=== PATIENT | female | born 1930 | race Caucasian/White ===

== ENCOUNTER 2017-07-22 09:11 | Inpatient (IN) ==
--- NOTE | 2017-07-22 10:08 | PROVIDER DOCUMENTATION ---
HPI-Head Injury - General Chief Complaint: Fall Stated Complaint: FALL Time Seen by Provider: 07/22/17 10:05 Source: patient Allergies/Adverse Reactions: Patient Allergies Allergy/AdvReac Type Severity Reaction Status Date / Time codeine AdvReac NAUSEA Verified 07/22/17 10:30 Home Medications: Home Medication List Medication Instructions Recorded Confirmed Last Taken Type Amiodarone HCl 200 mg PO QAM 07/22/17 07/22/17 07/22/17 07:00 History Levothyroxine Sodium 50 mcg PO QAM 07/22/17 07/22/17 07/22/17 07:00 History - History of Present Illness-Head Injury Nature of Presenting Problem: 86 year old WF presents after a fall. pt reports she fell this morning and does not know why she is falling. pt c/o right facial pain, right eyebrow laceration , left hip pain. pt denies chest pain, shortness of breath, difficulty breathing , syncope, dizziness. pt appears in no distress, awake, alert. Head Injury Location: reports: frontal (right facial) Other injuries associated with incident:: reports: head Quality of Pain: reports: aching, dull Severity: reports: mild Onset/Duration: reports: just prior to arrival Timing: reports: still present, constant Method of Injury: reports: fell Any recent trauma/injury?: reports: major, to head Loss of Consciousness: no loss of consciousness Locality of Occurance: Home Similar Symptoms Previously?: Yes Recently seen or treated by another doctor?: Yes (see EMR for recent frequent falls.) Review of Systems - Adult - REVIEW OF SYSTEMS - ADULT Constitutional: reports: no symptoms reported. denies: chills, fever, fatique Eyes: reports: see HPI, eye pain. denies: discharge, decreased vision, blurred vision, double vision Ears, Nose, Mouth & Throat: reports: see HPI, epistaxis, sinus problem (right maxillary pain). denies: throat pain, throat swelling Cardiovascular: reports: no symptoms reported. denies: chest pain, palpitations , syncope Respiratory: reports: no symptoms reported. denies: chronic cough, cough, shortness of breath, wheezing Gastrointestinal: reports: no symptoms reported. denies: abdominal pain, diarrhea, nausea, vomiting Genitourinary: reports: no symptoms reported. denies: dysuria, hematuria, urgency Musculoskeletal: reports: see HPI, joint pain (left hip) Integumentary: reports: see HPI, other (lacerations). denies: hives, itching, skin sores/ulcer Neurological: reports: no symptoms reported. denies: ataxia, dizziness/vertigo , headache/migraines, loss of balance, numbness, paresthesia, seizure, slurred speech, syncope, tremors Psychiatric: reports: no symptoms reported Endocrine: reports: no symptoms reported Hematologic/Lymphatic: reports: no symptoms reported Allergic/Immunologic: reports: no symptoms reported All Other Systems: Reviewed and Negative Past History - Adult - PAST MEDICAL HISTORY-ADULT Review of Records: reports: Old Records Reviewed, Nursing Assessment Review, Medications Reviewed, Social history reviewed & non-contributory. 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 denies: murmur, pacemaker Respiratory: reports: denies history Gastrointestinal: reports: GERD Obstetrical/Gynecological: reports: denies history Genitourinary: reports: denies history Musculoskeletal: reports: arthritis, other fractures, other (multiple frequent falls) Neurological: reports: CVA, other (chronic subdural hematomas). denies: stroke deficits, Seizures/Epilepsy, TIA Endocrine/Immune: reports: denies history Other Conditions: reports: denies history - PRIOR SURGERIES/PROCEDURES Surgical/Procedure History: reports: appendectomy, cholecystectomy, hysterectomy , orthopedic (extremity) - IMMUNIZATION STATUS Childhood Immunizations: NUTD Flu Vaccine: NUTD - FAMILY HISTORY Family History: diabetes Physical Exam- Neurological - Physical Exam-Neuro Initial Vital Signs Reviewed: Yes General Appearance: appears well, alert, no apparent distress Eye Exam: bilateral eye: normal inspection, PERRL, EOMI HENMT: moist mucous membranes, TMs normal, pharynx normal, maxillary tenderness (right), other. negative: normal ENT inspection, frontal tenderness Head Injury: active bleeding, contusions (right orbital laceration), ecchymosis , lacerations, raccoon eyes (right), swelling, tenderness Face: 1 - ecchymosis; right orbit tender to palpation; 1.5 cm laceration to the right eyebrow. Neck: non-tender, full range of motion, supple, normal inspection. negative: C- spine tenderness, limited range of motion, tender lateral, tender midline Respiratory: chest non-tender, lungs clear, normal breath sounds, no pleuratic chest pain, no respiratory distress, no accessory muscle use Cardiovascular: normal peripheral pulses, regular rate, rhythm Abdominal Exam: normal bowel sounds, non tender, soft Peripheral Pulses: radial (R): 2+, radial (L): 2+, dorsalis-pedis (R): 2+, dorsalis-pedis (L): 2+ Extremity: normal inspection, no pedal edema, no calf tenderness, normal capillary refill, pelvis stable, tenderness (left hip tender with palpation.). 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 negative: facial asymmetry, facial droop, facial paresthesias, facial weakness, tongue deviation to R, tongue deviation to L Coordination/Gait: negative: normal gait (unable to ambulate secondary to pain/ tenderness) Motor/Sensory: no motor deficit, no sensory deficit. negative: sensory deficit , weak motor strength RUE, weak motor strength LUE, weak motor strength RLE, weak motor strength LLE Neurologic: special trackwork blacksmith II-XII nml as tested, grossly normal, no motor/sensory deficits . negative: facial droop, focal weakness, motor weakness Integumentary: normal color, normal turgor, laceration(s) (right eyebrow) Psych/Mental Status: normal mood/affect, normal thought content, normal thought process, oriented x 3 - Glascow Coma Scale Best Eye Response: (4) open spontaneously Best Verbal Response: (5) oriented Best Motor Response: (6) obeys commands Total Glascow Score: 15 Progress - PLAN OF CARE/RESULTS Progress/Plan/Lab Results: Vital Signs - 8 hr 07/22/17 09:15 07/22/17 11:41 07/22/17 11:51 Temperature 97.5 F L Pulse Rate 74 64 66 Respiratory Rate 16 15 19 Blood Pressure 112/65 125/85 118/58 O2 Sat by Pulse Oximetry 95 97 07/22/17 14:00 07/22/17 14:22 Temperature Pulse Rate 72 74 Respiratory Rate 15 16 Blood Pressure 133/81 115/68 O2 Sat by Pulse Oximetry 95 95 Laboratory Results - last 24 hr 07/22/17 07/22/17 07/22/17 10:36 10:36 10:36 WBC 22.41 H RBC 3.70 L Hgb 11.8 L Hct 35.1 L MCV 94.9 MCH 31.9 H MCHC 33.6 RDW Std Deviation 14.6 H Plt Count 269 MPV 10.3 Immature Gran % (Auto) 0.8 H Neut % (Auto) 88.2 H Lymph % (Auto) 5.7 L Br[place] % (Auto) 4.8 Eos % (Auto) 0.4 Baso % (Auto) 0.1 Immature Gran # (Auto) 0.17 H Neut # (Auto) 19.76 H Lymph # (Auto) 1.27 Br[place]ley # (Auto) 1.08 H Eos # (Auto) 0.10 Baso # (Auto) 0.03 PT INR PTT (Actin FS) Sodium 137 Potassium 4.5 Chloride 100 Carbon Dioxide 26 Anion Gap 11 BUN 20 Creatinine 1.4 H Estimated GFR/1.73 m2 36 BUN/Creatinine Ratio 14 Glucose 171 H Calculated Osmolality 280 Calcium 9.8 Total Bilirubin 0.41 AST 18 ALT 9 L Alkaline Phosphatase 59 Creatine Kinase 38 Troponin T Total Protein 7.0 Albumin 4.1 Globulin 2.9 Albumin/Globulin Ratio 1.4 Plasma Lactate Urine Source Urine Color Urine Turbidity Urine pH Ur Specific [place] Urine Protein Ur Glucose (Stick) Ur Ketones (Stick) Urine Blood Urine Nitrite Urine Bilirubin Urobilinogen Dipstick Urine Leukocytes Urine WBC (Auto) Urine RBC (Auto) U Epithel Cells (Auto) Urine Bacteria (Auto) Urine Opiates Screen Ur Oxycodone Screen Ur Methadone, Qual Ur Barbiturates Screen Ur Phencyclidine Scrn Ur Amphetamines Screen U Benzodiazepines Scrn Urine Cocaine Screen U Cannabinoids Screen Plasma/Serum Ethyl Alc Blood Type Antibody Screen 07/22/17 07/22/17 07/22/17 10:36 10:36 10:36 WBC RBC Hgb Hct MCV MCH MCHC RDW Std Deviation Plt Count MPV Immature Gran % (Auto) Neut % (Auto) Lymph % (Auto) [place] % (Auto) Eos % (Auto) Baso % (Auto) Immature Gran # (Auto) Neut # (Auto) Lymph # (Auto) [place] # (Auto) Eos # (Auto) Baso # (Auto) PT 10.5 INR 1.00 PTT (Actin FS) 21.9 L Sodium Potassium Chloride Carbon Dioxide Anion Gap BUN Creatinine Estimated GFR/1.73 m2 BUN/Creatinine Ratio Glucose Calculated Osmolality Calcium Total Bilirubin AST ALT Alkaline Phosphatase Creatine Kinase Troponin T < 0.010 Total Protein Albumin Globulin Albumin/Globulin Ratio Plasma Lactate 2.4 H Urine Source Urine Color Urine Turbidity Urine pH Ur Specific [place] Urine Protein Ur Glucose (Stick) Ur Ketones (Stick) Urine Blood Urine Nitrite Urine Bilirubin Urobilinogen Dipstick Urine Leukocytes Urine WBC (Auto) Urine RBC (Auto) U Epithel Cells (Auto) Urine Bacteria (Auto) Urine Opiates Screen Ur Oxycodone Screen Ur Methadone, Qual Ur Barbiturates Screen Ur Phencyclidine Scrn Ur Amphetamines Screen U Benzodiazepines Scrn Urine Cocaine Screen U Cannabinoids Screen Plasma/Serum Ethyl Alc Blood Type Antibody Screen 07/22/17 07/22/17 07/22/17 10:36 11:57 11:57 WBC RBC Hgb Hct MCV MCH MCHC RDW Std Deviation Plt Count MPV Immature Gran % (Auto) Neut % (Auto) Lymph % (Auto) [place] % (Auto) Eos % (Auto) Baso % (Auto) Immature Gran # (Auto) Neut # (Auto) Lymph # (Auto) [place] # (Auto) Eos # (Auto) Baso # (Auto) PT INR PTT (Actin FS) Sodium Potassium Chloride Carbon Dioxide Anion Gap BUN Creatinine Estimated GFR/1.73 m2 BUN/Creatinine Ratio Glucose Calculated Osmolality Calcium Total Bilirubin AST ALT Alkaline Phosphatase Creatine Kinase Troponin T Total Protein Albumin Globulin Albumin/Globulin Ratio Plasma Lactate Urine Source CATH Urine Color YELLOW Urine Turbidity CLEAR Urine pH 6.0 Ur Specific [place] 1.018 Urine Protein 30 A Ur Glucose (Stick) NEGATIVE Ur Ketones (Stick) NEGATIVE Urine Blood NEGATIVE Urine Nitrite NEGATIVE Urine Bilirubin NEGATIVE Urobilinogen Dipstick NORMAL Urine Leukocytes NEGATIVE Urine WBC (Auto) <10 Urine RBC (Auto) <10 U Epithel Cells (Auto) <10 Urine Bacteria (Auto) NEGATIVE Urine Opiates Screen PRESUMPTIVE POSITIVE A Ur Oxycodone Screen NONE DETECTED Ur Methadone, Qual NONE DETECTED Ur Barbiturates Screen NONE DETECTED Ur Phencyclidine Scrn NONE DETECTED Ur Amphetamines Screen NONE DETECTED U Benzodiazepines Scrn PRESUMPTIVE POSITIVE A Urine Cocaine Screen NONE DETECTED U Cannabinoids Screen NONE DETECTED Plasma/Serum Ethyl Alc Blood Type A POSITIVE Antibody Screen NEGATIVE Orders Category Date Time Status Cardiac Monitoring DIRECTED Care 07/22/17 10:07 Active Oxygen Therapy- ED Nursing DIRECTED Care 07/22/17 10:07 Hold Saline Loc NOW Care 07/22/17 10:07 Active CHEST-PORTABLE [RAD] Stat Exams 07/22/17 10:[address] FACIAL BONES W/O CONTRAST [CT] Stat Exams 07/22/17 10:[address] HEAD/C-SPINE W/O CONTRAST [CT] Stat Exams 07/22/17 10:05 Completed XRAY PELVIS W/HIP 2-3VW LT [RAD] Stat Exams 07/22/17 11:58 Completed ALCOHOL BLOOD Stat Lab 07/22/17 10:36 Completed CBC WITH ELECTRONIC DIFF [HEME] Stat Lab 07/22/17 10:36 Completed CK PROFILE [SP CHEM] Stat Lab 07/22/17 10:36 Completed COMPREHENSIVE METABOLIC PANEL [CHEM] Stat Lab 07/22/17 10:36 Completed LACTATE, PLASMA [CHEM] Stat Lab 07/22/17 10:36 Completed PROTIME WITH INR [COAG] Stat Lab 07/22/17 10:36 Completed PTT [COAG] Stat Lab 07/22/17 10:36 Completed TROPONIN T Stat Lab 07/22/17 10:36 Completed TYPE & SCREEN [BBK] Stat Lab 07/22/17 10:36 Completed URINALYSIS W/POSS RFLX CULT-1 [URINALYSIS] Stat Lab 07/22/17 11:57 Completed URINE DRUG SCREEN Stat Lab 07/22/17 11:57 Completed 0.9% Sodium Chloride Inj [Ns] 1,000 ml Med 07/22/17 11:46 Discontinued IV 999 mls/hr Doxycycline 100 mg Med 07/22/17 15:00 Active 0.9% Sodium Chloride Inj [Ns] 250 ml IV ONCE Doxycycline 100 mg Med 07/22/17 14:15 Ordered 0.9% Sodium Chloride Inj [Ns] 250 ml IV Q12H Lidocaine 1% [Xylocaine 1%] Med 07/22/17 14:45 Discontinued 20 ml INJ NOW ONE Oxymetazoline Nasal [place] [Afrin Nasal [place]] Med 07/22/17 14:15 Active See Dose Instructions DAYA Q12H Pharmacy Order [Vancomycin IV Per Pharmacy] Med 07/22/17 14:15 Active 1 each MISC DIRECTED Piperacillin/Tazobactam [Zosyn] 3.375 gm Med 07/22/17 12:12 Discontinued 0.9% Sodium Chloride Inj [Ns] 50 ml IV NOW Piperacillin/Tazobactam [Zosyn] 3.375 gm Med 07/22/17 19:00 Active 0.9% Sodium Chloride Inj [Ns] 50 ml IV Q6H Vancomycin 1 gm/Ns Med 07/22/17 12:13 Discontinued 1 gm in 250 ml IV NOW Pulse Oximetry Stat Oth 07/22/17 10:07 Completed EKG [EKG] Stat Ther 07/22/17 10:07 Draft Transfer/Admit Order [TRANSFER] Routine Transfer 07/22/17 13:58 Ordered Reviewed labs, radiology, H&P with Dr. Osuna, agrees with admission, will Result Diagrams: 07/22/17 10:36 07/22/17 10:36 - CONSULTS/PCP/HOSPITALIST Notification #1 *Consult/PCP/Hospitalist*: Nurse for Dr. Magallanes Time Discussed: 11:56 Reason/Comments: passed radiology findings, she is going to page him for consult. #2 Consult: Dr. Maagllanes Time Discussed: 12:06 Consult Disposition: F/U in office, other (reviewed radiology results with Dr. Magallanes, he recommends closing laceration over the right eyebrow; direct pt to not blow nose, sneeze with mouth open, soft diet, afrin. He will see patient in his office on July 25, 2017.) #3 Consult: Nigel Time Discussed: 12:10 Reason/Comments: she will call back Consult Disposition: other ([id number];Gay called back, accepted admission, Dr. Joshua attending.) Procedures - LACERATION/WOUND REPAIR/FB Right Eye Wound Location: Other: right eyebrow Wound Length: 1.5cm Wound's Depth, Shape: into muscle, stellate, contused tissue Wound Explored/Foreign Body: clean, no foreign body found Irrigated with Saline?: No Prepped with: Hibiclens, Kit Utilized, Sterile Drapes Applied Anesthetic: 1%, Lidocaine/Xylocaine Volume of Anesthetic (ml's): 4 Wound Debrided: minimal Wound Repaired with: Sutures Suture Size/Type: 6.0, Non-Absorbable, Nylon Number of Sutures: 4 Layer Closure?: No Sterile Dressing Applied?: Yes Splint Applied?: No Sling Applied?: No Post Procedure Neurovascular Exam: N/A Departure - Departure Date of Disposition Decision: 07/22/17 Time of Disposition Decision: 11:48 DIAGNOSIS: Maxillary fracture Qualifiers: Encounter type: initial encounter Fracture type: closed Laterality: right Qualified Code(s): S02.40CA - Maxillary fracture, right side, initial encounter for closed fracture Fall Qualifiers: Encounter type: initial encounter Qualified Code(s): W19.XXXA - Unspecified fall, initial encounter Thoracic compression fracture Qualifiers: Encounter type: initial encounter Fracture type: closed Qualified Code(s): S22.000A - Wedge compression fracture of unspecified thoracic vertebra, initial encounter for closed fracture Disposition: ADMITTED INPATIENT Certified Medical Emergency: Emergent Condition: Stable Additional Freetext Instructions: Per Dr. Delmar Magallanes on admit: F/U on WednesdayJul.25 in his office Direct pt not not blow nose sneeze with mouth open not closed soft diet use afrin Doxycycline Referrals and Follow-Ups: Will Magallanes MD [ACTIVE STAFF PHYSICIAN] - 07/25/17 Lucas Geller [Primary Care Provider] - - Critical Care Note This patient required my direct & personal management of CC.: No Attestation - Physician/ FORD Attestation Patient care was provided by Advanced Practice Provider:: Yes Advanced Practice Provider:: Yolanda Norton Advanced Practice Provider documentation review:: The Mid-level provider documentation, treatment plan and medical decision making was reviewed by the physician who agrees with all treatment and medical decision making by the P. The physician spent face to face time with patient:: Yes (@[id number]) Advanced Practice Provider documentation review:: Supervising physician onsite and consulted in the evaluation and care of this patient. The physician did have a face to face encounter with the patient.
[2017-07-22 10:49] LABS: BASO% 0.1 % (0.0-0.8); EOS% 0.4 % (0.0-10.0); HEMATOCRIT 35.1 % (37.0-47.0); HEMOGLOBIN 11.8 g/dL (12.0-16.0); IMM GRAN# 0.17 X1000 (0.0-0.04); IMM GRAN% 0.8 % (0.0-0.5); LYMPH# 1.27 X1000 (1.2-3.4); LYMPH% 5.7 % (20.5-51.1); MANUAL DIFF NEEDED? NO; MCH 31.9 PG (27-31); MCHC 33.6 g/dL (33-37); MCV 94.9 FL (81-99); MONO# 1.08 X1000 (0.11-0.59); MONO% 4.8 % (1.7-9.3); MPV 10.3 FL (7.4-10.4); NEUT% 88.2 % (42.2-75.2); PLT 269 X1000 (130-400)
[2017-07-22 10:56] LABS: PROTIME 10.5 Seconds (9.2-11.7); PTT 21.9 Seconds (22.0-36.0)
--- NOTE | 2017-07-22 11:05 | Diag Imaging Result Doc PS360 ---
EXAM: CHEST-PORTABLE HISTORY: AMS TECHNIQUE: AP upright at 1055 COMMENT: The appearance of the chest has not changed appreciably since the previous examination of 06/28/2017. The fracture of the proximal left humerus is again noted. IMPRESSION: Stable chest. Electronically signed by Cliff Best 07/22/2017 11:03 AM
[2017-07-22 11:08] LABS: ALBUMIN 4.1 g/dL (3.5-5.0); CALCIUM 9.8 mg/dL (8.8-10.2); POTASSIUM 4.5 mmol/L (3.5-5.1); TOTAL BILIRUBIN 0.41 mg/dL (0.20-1.00)
--- NOTE | 2017-07-22 11:31 | Diag Imaging Result Doc PS360 ---
CT HEAD/C-SPINE W/O CONTRAST - 07/22/2017 INDICATION: fall facial trauma/head TECHNIQUE: A CT dose reduction protocol was used. COMPARISON: 06/28/2017, 05/12/2016 FINDINGS: Head CT: There are low density bilateral subdural effusions, probably chronic subdural hematomas. These measure about 6 mm on the right and 2-3 mm on the left. These effusions are proximally CSF density. Otherwise stable atrophy and cerebral chronic microvascular disease. No hyperdense acute intracranial hemorrhage. The calvarium is intact. Cervical spine: There is subtle compression fracture at the superior endplate of T2 which appears to be new from prior. There is about 25% loss of height at T2. The prior exam is 05/12/2016. Stable exaggerated lordosis of the cervical spine. No significant central canal or neural foraminal stenosis. IMPRESSION: 1. New bilateral low density subdural effusions, most likely chronic subdural hematomas. No acute hemorrhage visible. 2. New subtle compression fracture at T2. Electronically signed by Luis Son 07/22/2017 11:29 AM
--- NOTE | 2017-07-22 11:35 | Diag Imaging Result Doc PS360 ---
CT FACIAL BONES W/O CONTRAST - 07/22/2017 INDICATION: fall; right facial trauma TECHNIQUE: A CT dose reduction protocol was used. COMPARISON: None FINDINGS: There are nondisplaced fractures of the anterior and posterior right maxillary sinus hobbs. There is significant opacification of the right maxillary sinus with hyperdense fluid suggesting blood. Stable nasal bone deformities without evidence of acute fracture. 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 There are no teeth. Orbits and orbital contents are normal. There is moderate right periorbital superficial soft tissue edema. IMPRESSION: 1. Subtle nondisplaced anterior and posterior wall fractures of the right maxillary sinus. Significant hyperdense blood in the right maxillary sinus. 2. Right periorbital superficial soft tissue swelling. Electronically signed by Luis Son 07/22/2017 11:33 AM
[2017-07-22] MEDS ORDERED: NS 1,000 ML IV ONE (11:46)
[2017-07-22] MEDS ORDERED: ZOSYN 3.375 GM in NS 50 ML IV ONE (12:12)
[2017-07-22] MEDS ORDERED: VANCOMYCIN 1 GM/NS 1 GM/250 ML IVPB IV ONE (12:13)
[2017-07-22 12:27] LABS: URINE CULTURE NEEDED? NO; URINE MICRO REVIEW NEEDED? NO; URINE SOURCE CATH
--- NOTE | 2017-07-22 12:34 | Diag Imaging Result Doc PS360 ---
EXAM: XRAY PELVIS W/HIP 2-3VW LT HISTORY: fall TECHNIQUE: AP pelvis and left hip three views COMMENT: The hip joint spaces are well-maintained. There has been internal fixation of the right femur. No acute fracture or dislocation is present and compared to 06/22/2017 there has been no appreciable change. IMPRESSION: No acute disease. Electronically signed by Cliff Best 07/22/2017 12:32 PM
[2017-07-22 12:36] LABS: BILIRUBIN URINE NEGATIVE (NEGATIVE); BLOOD URINE NEGATIVE (NEGATIVE); COLOR YELLOW; GLUCOSE URINE NEGATIVE (NEGATIVE); LEUKOCYTES URINE NEGATIVE (NEGATIVE); NITRITE URINE NEGATIVE (NEGATIVE); PROTEIN URINE 30 mg/dL (NEGATIVE); SP GRAVITY URINE 1.018; TURBIDITY URINE CLEAR (CLEAR); UROBILINOGEN URINE NORMAL (NORMAL)
[2017-07-22 12:37] LABS: UR EPITHELIAL CELLS <10 /HPF (<10); URINE BACTERIA NEGATIVE /HPF; URINE RBC <10 /HPF (<10); URINE WBC <10 /HPF (<10)
[2017-07-22 12:45] LABS: UR AMPHETAMINES QUAL NONE DETECTED (NONE DETECT); UR BARBITUATES QUAL NONE DETECTED (NONE DETECT); UR BENZODIAZEPIN QUAL PRESUMPTIVE POSITIVE (NONE DETECT); UR CANNABINOIDS QUAL NONE DETECTED (NONE DETECT); UR COCAINE QUAL NONE DETECTED (NONE DETECT); UR METHADONE QUAL NONE DETECTED (NONE DETECT); UR OPIATES QUAL PRESUMPTIVE POSITIVE (NONE DETECT); UR OXYCODONE QUAL NONE DETECTED (NONE DETECT); UR PCP QUAL NONE DETECTED (NONE DETECT)
--- NOTE | 2017-07-22 14:12 | EKG Report ---
Test Performed on : 07/22/2017 11:36:45 AM Test Reason : AMS Blood Pressure : / mmHG Vent. Rate : 062 BPM Atrial Rate : 062 BPM P-R Int : 172 ms QRS Dur : 142 ms QT Int : 510 ms P-R-T Axes : 057 -74 047 degrees QTc Int : 517 ms Normal sinus rhythm. Left axis deviation Right bundle branch block Abnormal ECG When compared with ECG of 28-JUN-2017 16:00, QRS axis shifted left Criteria for Anteroseptal infarct are no longer present T wave inversion no longer evident in Anterior leads Unconfirmed Result
[2017-07-22] MEDS ORDERED: VANCOMYCIN IV PER PHARMACY MISC SCH (14:15)
--- NOTE | 2017-07-22 14:26 | HISTORY AND PHYSICAL ---
HISTORY OF PRESENT ILLNESS: She is 86 years old, she is awake. She remembers falling, but she does not remember how she fell. She apparently told me she fell a couple of days ago as well. She has ecchymosis around both eyes and abrasion over her right upper lip. Her neck was supple. She is not sure if she passed out or not. She just does not remember the details. We do not have much in the way of past medical history. Maybe I will obtain that from family. There was no family there at the time. Based on her home medication, she is on amiodarone and she is on levothyroxine, so I presume she has primary hypothyroidism and amiodarone probably for atrial fibrillation in the past. Her urine drug screen was presumptively positive for opiates and benzodiazepines. I have to see if we can get family history and get more complete details of past medical history. ALLERGIES: Codeine. PHYSICAL EXAMINATION: VITAL SIGNS: Temperature 97.5 degrees, pulse 66, respirations 19, blood pressure 118/58. HEENT: Her pupils are equal. Looks like her visual figueroa are full. She denies any change in vision. Her mouth with soft tissue swelling, abrasion upper lip. Inside her mouth upper dentures, but no lesions seen inside the mouth. Oropharynx and nasopharynx look pretty clear as well. She has periorbital ecchymosis and some ecchymosis over her right maxillary as well. LUNGS: Clear anterolateral. CARDIOVASCULAR: Regular rhythm and rate without murmur. S3. ABDOMEN: Soft. SKIN: Warm and dry. DIAGNOSTIC DATA: White count 2410, hematocrit 35, platelet count 269,000. Sodium 137, potassium 4.5, chloride 100, BUN 20, creatinine 1.4. Glucose 171, calcium 9.8. Troponin was less than 0.01. ProTime 10.5, PTT 21.9. Urinalysis unremarkable. Chest x-ray: Stable chest. Chest has not changed appreciably since previous exam in 06/28/2017. There is a fracture of the proximal left humerus that is again noted. Facial bone CT: Subtle nondisplaced anterior and posterior wall fractures of the right maxillary sinus. Significant hyperdense blood in the right maxillary sinus. Right periorbital superficial soft tissue swelling. Head and cervical spine CT: New bilateral low-density subdural effusions, most likely chronic subdural hematomas. No acute hemorrhage visible. New subtle compression fracture at T2. Hip and pelvic x-ray: No acute disease. ASSESSMENT AND PLAN: 1. Facial trauma. Right maxillary fracture. Dr. Delmar Magallanes has evaluated. Conservative treatment. We will put her on some antibiotics. 2. T2 compression fracture. We will give her some bed rest. 3. Assume that she is on amiodarone for atrial fibrillation. See if we can get old records. 4. On Synthroid. We will recheck her T4, TSH and keep her on her home Synthroid for now. I think we ought to give her fluids, run at 75 mL/hour. She does have a Carr catheter in. We started her on vancomycin and piperacillin. I believe Dr. Magallanes would like her on doxycycline as well. cc: Jw Joshua MD
[2017-07-22] MEDS ORDERED: XYLOCAINE 1% INJ ONE (14:45)
[2017-07-22] MEDS ORDERED: DOXYCYCLINE 100 MG in NS 250 ML IV ONE (15:00)
[2017-07-22] MEDS ORDERED: ZOFRAN IV PRN (17:11)
[2017-07-22] MEDS: NS 1,000 ML IV SCH (17:49)
[2017-07-22] MEDS: ZOSYN 3.375 GM in NS 50 ML IV SCH (18:01)
[2017-07-23] MEDS: ZOSYN 3.375 GM in NS 50 ML IV SCH ×4 (01:02→20:50)
[2017-07-23] MEDS: DOXYCYCLINE 100 MG in NS 250 ML IV SCH ×2 (03:01→16:27)
[2017-07-23] MEDS: AFRIN NASAL SPRAY NAS SCH ×3 (05:29→20:52)
[2017-07-23 06:05] LABS: BASO% 0.5 % (0.0-0.8); EOS# 0.19 X1000 (0.0-0.7); HEMATOCRIT 26.8 % (37.0-47.0); HEMOGLOBIN 8.8 g/dL (12.0-16.0); IMM GRAN# 0.03 X1000 (0.0-0.04); IMM GRAN% 0.3 % (0.0-0.5); LYMPH# 1.01 X1000 (1.2-3.4); LYMPH% 10.4 % (20.5-51.1); MANUAL DIFF NEEDED? NO; MCHC 32.8 g/dL (33-37); MCV 97.5 FL (81-99); MONO# 0.81 X1000 (0.11-0.59); MONO% 8.3 % (1.7-9.3); MPV 10.6 FL (7.4-10.4); NEUT% 78.5 % (42.2-75.2); PLT 195 X1000 (130-400); RBC 2.75 XMIL (4.2-5.4)
[2017-07-23 06:28] LABS: FREE T4 1.46 ng/dL (0.93-1.70); VITAMIN D 25 HYDROXY 13.3 NG/DL
[2017-07-23 08:58] LABS: INR 1.04
--- NOTE | 2017-07-23 09:38 | PROGRESS NOTE ---
DATE: 07/23/2017 SUBJECTIVE: She looks like she is in less discomfort this morning. She has less swelling around her eyes and nose. She is awake and alert. She remembers the fall but she does not remember why and does not remember the details of her fall yesterday. OBJECTIVE: Temperature 99.0 degrees, pulse was running 60s, respirations 20, blood pressure 148/63. Lungs are clear in all lung figueroa. Cardiovascular: Regular rhythm and rate without murmur or S3. Abdomen is soft. Skin is warm and dry. Urine output 1100 mL. LABORATORY DATA: Labs from 07/23/2017: White count 9710, hematocrit 26. Note that her hematocrit was 35 when she came in. This may be volume. Platelet count 195,000. Chemistries: Sodium 137, potassium 4.5, chloride 100, BUN 20, creatinine 1.4, calcium 9.8. ASSESSMENT AND PLAN: 1. Fall with right maxillary fracture. No surgical intervention needed at this point. It looks like the soft tissue swelling is going down. X-rays of her pelvis and hip with no acute . She is moving all extremities. We will see if we can get her eating and see if we can get physical therapy involved to try and get her out of bed. She has a couple lacerations on her face, 1 above the right eye, right forehead. Review of the lab from yesterday. We will watch her hematocrit, but I suspect this is mainly volume, but hematocrit is 26, hemoglobin 8.8. We will check iron studies. Check stool for blood. We also need to see about what we are going to do for discharge status. She is on Zosyn 3.375 mg, and she is on vancomycin. She is getting normal saline at 75 mL an hour, and she is on doxycycline for maxillary sinus. We will see if we can obtain some more history. My suspicion is she has had a history of atrial fibrillation. She is on Cordarone. She appears to be in sinus rhythm now, so the question is whether we need to continue the Cordarone. cc: Jw Joshua MD
[2017-07-23] MEDS: SYNTHROID PO SCH (10:01)
[2017-07-23] MEDS: PRILOSEC PO SCH (10:01)
[2017-07-23] MEDS: CORDARONE PO SCH (10:01)
[2017-07-23 10:19] LABS: ALBUMIN 3.5 g/dL (3.5-5.0); CALCIUM 8.7 mg/dL (8.8-10.2); POTASSIUM 4.5 mmol/L (3.5-5.1); TOTAL BILIRUBIN 0.37 mg/dL (0.20-1.00); TOTAL PROTEIN 5.6 g/dL (6.3-8.3)
[2017-07-23] MEDS: TYLENOL PO PRN (18:12)
[2017-07-23] MEDS: NS 1,000 ML IV SCH ×2 (18:42→20:51)
[2017-07-23] MEDS: ULTRAM PO PRN (22:40)
[2017-07-23] MEDS: MELATONIN PO SCH (22:40)
[2017-07-24] MEDS: ZOSYN 3.375 GM in NS 50 ML IV SCH (02:54)
[2017-07-24] MEDS: DOXYCYCLINE 100 MG in NS 250 ML IV SCH ×2 (03:35→15:21)
--- NOTE | 2017-07-24 09:31 | PROGRESS NOTE ---
DATE: 07/24/2017 Ms. Sharp's swelling has gone down in her face. She has eaten a little bit this morning. She does feel a little weak but feels better. No complaints of specific pain at this time except in her right maxillary, feels funny. Temp 97.9 degrees, pulse 60, respirations 16, blood pressure 142 to 169 over 65 to 90. Lungs: Are clear in all lung figueroa anterolateral. Cardiovascular Exam: Regular rhythm and rate without murmur or S3. Abdomen: Soft. Skin: Is warm, dry. Urine output is 2800 mL. LAB: Reviewed from the , hematocrit is 26, hemoglobin was 8.8, hematocrit was 35 when she came in. We will check another CBC tomorrow. Electrolytes from yesterday unremarkable. Creatinine has come down to 1.4 to 1.3. ASSESSMENT AND PLAN: 1. Fall with right maxillary facial fracture, soft tissue swelling going down. Lacerations on her face look good and are healing. 2. Encourage p.o. intake. 3. General weakness and deconditioning. We are going to continue physical therapy. She does not have a Carr catheter in. Her orders reviewed. She is on Cordarone and I assume that is for past history of atrial fibrillation. She is sleeping okay. We got her on vancomycin and piperacillin and doxycycline just because of the maxillary fracture. I think I can stop, just leave her on the doxycycline. I will stop the Pipracil and vancomycin. cc: Jw Joshua MD
[2017-07-24] MEDS: ULTRAM PO PRN (10:05)
[2017-07-24] MEDS: PRILOSEC PO SCH (10:05)
[2017-07-24] MEDS: SYNTHROID PO SCH (10:06)
[2017-07-24] MEDS: CORDARONE PO SCH (10:06)
[2017-07-24] MEDS: AFRIN NASAL SPRAY NAS SCH ×3 (10:08→21:41)
[2017-07-24] MEDS: NS 1,000 ML IV SCH ×2 (10:08→10:09)
[2017-07-24] MEDS: TYLENOL PO PRN (18:12)
[2017-07-24] MEDS: MELATONIN PO SCH (21:42)
[2017-07-25] MEDS ORDERED: VANCOMYCIN 1 GM/NS 1 GM/250 ML IVPB IV SCH (02:00)
[2017-07-25] MEDS: DOXYCYCLINE 100 MG in NS 250 ML IV SCH ×2 (02:15→15:50)
[2017-07-25] MEDS: NS 1,000 ML IV SCH ×2 (02:15→19:52)
[2017-07-25 06:00] LABS: BASO% 0.2 % (0.0-0.8); EOS# 0.14 X1000 (0.0-0.7); EOS% 1.7 % (0.0-10.0); HEMATOCRIT 25.5 % (37.0-47.0); HEMOGLOBIN 8.7 g/dL (12.0-16.0); IMM GRAN# 0.05 X1000 (0.0-0.04); IMM GRAN% 0.6 % (0.0-0.5); LYMPH# 0.92 X1000 (1.2-3.4); LYMPH% 11.5 % (20.5-51.1); MANUAL DIFF NEEDED? YES; MCH 32.1 PG (27-31); MCHC 34.1 g/dL (33-37); MCV 94.1 FL (81-99); MONO# 0.57 X1000 (0.11-0.59); MONO% 7.1 % (1.7-9.3); MPV 10.3 FL (7.4-10.4); NEUT% 78.9 % (42.2-75.2); PLT 209 X1000 (130-400); RBC 2.71 XMIL (4.2-5.4)
[2017-07-25 06:23] LABS: ALBUMIN 3.5 g/dL (3.5-5.0); CALCIUM 8.7 mg/dL (8.8-10.2); MAGNESIUM 1.6 mg/dL (1.5-2.7); POTASSIUM 3.3 mmol/L (3.5-5.1); TOTAL BILIRUBIN 0.35 mg/dL (0.20-1.00)
[2017-07-25 06:59] LABS: EOS 2 % (1-10); LYMPHS 4 % (21-51)
[2017-07-25] MEDS: SYNTHROID PO SCH (10:10)
[2017-07-25] MEDS: PRILOSEC PO SCH (10:10)
[2017-07-25] MEDS: CORDARONE PO SCH (10:10)
[2017-07-25] MEDS: AFRIN NASAL SPRAY NAS SCH ×2 (10:12→21:48)
--- NOTE | 2017-07-25 13:07 | PROGRESS NOTE ---
DATE: 07/25/2017 SUBJECTIVE: Ms. Sharp feels better. She was able to walk with physical therapy yesterday. The swelling has gone down in her face and ecchymosis over her right maxillary is starting to fade. She is eating a little bit but having to be encouraged to eat. Will discuss with family. I think the family would like her to go to [facility]. She does not want to go to rehab but I will discuss with family. OBJECTIVE: Vital Signs: Temperature 97.1 degrees, pulse 74, respirations 18, blood pressure 170/80. HEENT: Pupils are equal and round. Neck: Supple. No adenopathy appreciated in the neck or supraclavicular. Lungs: Clear anterolateral. Cardiovascular: Regular rate without murmur or S3. Abdomen: Soft. Skin: Warm and dry. Urine output is almost 9 L. LABORATORY STUDIES: White count 8030, hematocrit 25, platelet count 209,000. Chemistry: Sodium 139, potassium 3.3, chloride 103, bicarb 23, BUN 10, creatinine 0.9. Blood sugar 99 and 113. ASSESSMENT AND PLAN: 1. She is status post fall with right axillary and facial trauma, fracture of the maxillary sinus. She is doing well. Swelling is going down. Remains afebrile. 2. General weakness, deconditioning. Encourage physical therapy. I think she would benefit from rehab. Was discussed with family. 3. Encourage p.o. intake. She needs nutrition. She is very thin with mild protein calorie malnutrition. Review of her orders, I do not see any change at this point. She is on doxycycline and we have her on amiodarone and I presume this is for previous history of atrial fibrillation. Continue 200 mg daily. Melatonin 3 mg at bedtime, tramadol 50 mg q.6 h. p.r.n. Continue present fluids at 75 mL normal saline every hour. cc: Jw Joshua MD
[2017-07-25] MEDS: MELATONIN PO SCH (21:48)
[2017-07-26] MEDS: DOXYCYCLINE 100 MG in NS 250 ML IV SCH ×2 (04:04→16:01)
[2017-07-26] MEDS: SYNTHROID PO SCH (09:21)
[2017-07-26] MEDS: CORDARONE PO SCH (09:21)
[2017-07-26] MEDS: PRILOSEC PO SCH (09:21)
[2017-07-26] MEDS: AFRIN NASAL SPRAY NAS SCH ×2 (09:23→21:10)
[2017-07-26] MEDS: NS 1,000 ML IV SCH ×2 (10:29→16:06)
--- NOTE | 2017-07-26 14:59 | PROGRESS NOTE ---
DATE: 07/26/2017 SUBJECTIVE: She is awake and alert. She has been able to walk some. She is eating a little better. I had discussions with her son. He would like her to go to a alf. She does not want to go to a alf and she is, I guess, willing to try and go to rehab but she is concerned. She wants to really go home. So social services designee is working on the case. OBJECTIVE: Vital signs: Temp 98.0 degrees, pulse 79, respirations 18, blood pressure 168/82. HEENT: Pupils are equal and round. CVP less than 6 cm. Lungs: Clear in all lung figueroa. Cardiovascular: Regular rhythm and rate without murmur or S3. Abdomen: Soft. Skin: Warm and dry. The ecchymosis in the right maxillary is fading. Lacerations on her forehead are healing well. ASSESSMENT AND PLAN: 1. Status post fall with right maxillary facial trauma. General swelling going down. Ecchymosis is fading. 2. General weakness and deconditioning. She is improving. 3. Encourage p.o. intake, nutrition. She would benefit from weight gain. We are looking for discharge plans. We will keep her on the doxycycline a while just because of the maxillary fracture. 4. Otherwise, she is on Synthroid for a history of hypothyroidism. She is euthyroid at the present time. cc: Jw Joshua MD
[2017-07-26] MEDS: ULTRAM PO PRN (21:09)
[2017-07-26] MEDS: MELATONIN PO SCH (21:09)
[2017-07-27] MEDS: DOXYCYCLINE 100 MG in NS 250 ML IV SCH (04:12)
[2017-07-27] MEDS: NS 1,000 ML IV SCH (04:41)
[2017-07-27] MEDS: PRILOSEC PO SCH (09:42)
[2017-07-27] MEDS: SYNTHROID PO SCH (09:42)
[2017-07-27] MEDS: CORDARONE PO SCH (09:42)
[2017-07-27] MEDS: AFRIN NASAL SPRAY NAS SCH (09:45)
--- NOTE | 2017-07-27 13:26 | Diag Imaging Result Doc PS360 ---
EXAM: HAND 2 VIEWS RIGHT HISTORY: suspected fracture to right big finger TECHNIQUE: Two views COMPARISON: None. FINDINGS: There is a transverse fracture through the mid first metacarpal. There is angulation of at least 50 degrees. There are mild to moderate arthritic changes throughout the hand and wrist. Old injury to the distal radius and likely fifth metacarpal. No other acute fracture or dislocation IMPRESSION: Fracture to the first metacarpal. Electronically signed by Oracio Pino 07/27/2017 1:23 PM
--- NOTE | 2017-07-27 15:07 | PROGRESS NOTE ---
DATE: 07/27/2017 SUBJECTIVE: This morning Ms. Sharp refers to be doing relatively fine. She was actually sitting up in the chair taking lunch. OBJECTIVE: Vital signs: Blood pressure is 148/73, pulse 84, respirations 18, temperature 98.3 degrees. General: Ms. Sharp 86-year-old female. She was sitting up in the chair not in any distress. HEENT: Mucosa is pink and moist. Anicteric. Acyanotic. There is some mild discoloration around the right eye and minimum laceration over the right eyebrow. Neck: Supple. There is no JVD. Chest: Good air entry bilateral. No crepitations. No rhonchi. Cardiovascular: Regular rate and rhythm. No murmurs, no rubs. No gallops. Abdomen: Soft, nontender. Bowel sounds are present. Extremities: No pedal edema. DISABILITY PROGRAM NAVIGATOR: Patient is awake and alert. She is fairly oriented to person, to place, to time. Follows some basic commands. Has normal vision. ASSESSMENT: 1. Frequent falls at home likely secondary to general weakness and deconditioning. 2. Vitamin D deficiency. Will replace this. 3. Acute kidney injury secondary to dehydration improved. 4. Leukocytosis on presentation. I think this was probably reactive. This has resolved. Patient does not have any other stigmata of possible infection. I will therefore go ahead and discontinue the antibiotics. 5. Constipation on x-rays. Will address this with bowel regimen. 6. Subtle nondisplaced anterior and posterior wall fractures of the right maxillary sinus stable. 7. Patient has a history of a right hip hardware noted. 8. Right big finger tenderness. I think there might probably be a fracture of this. I will go ahead and x-ray this for now. 9. In terms of disposition I understand licensed master social worker have already faxed request for patient placement at [facility]. We just pending response. cc: Inderjit Chang MD MTDD
[2017-07-27] MEDS: MELATONIN PO SCH (21:33)
[2017-07-28] MEDS: AFRIN NASAL SPRAY NAS SCH ×2 (02:58→09:25)
[2017-07-28 05:40] LABS: BASO% 0.1 % (0.0-0.8); EOS# 0.23 X1000 (0.0-0.7); EOS% 2.1 % (0.0-10.0); HEMATOCRIT 25.9 % (37.0-47.0); HEMOGLOBIN 8.9 g/dL (12.0-16.0); IMM GRAN# 0.09 X1000 (0.0-0.04); IMM GRAN% 0.8 % (0.0-0.5); LYMPH# 1.37 X1000 (1.2-3.4); LYMPH% 12.4 % (20.5-51.1); MANUAL DIFF NEEDED? YES; MCH 32.1 PG (27-31); MCHC 34.4 g/dL (33-37); MCV 93.5 FL (81-99); MONO# 0.87 X1000 (0.11-0.59); MONO% 7.9 % (1.7-9.3); MPV 10.3 FL (7.4-10.4); NEUT% 76.7 % (42.2-75.2); PLT 231 X1000 (130-400); RBC 2.77 XMIL (4.2-5.4)
[2017-07-28 06:04] LABS: CALCIUM 8.9 mg/dL (8.8-10.2); POTASSIUM 3.5 mmol/L (3.5-5.1)
[2017-07-28 07:16] LABS: LYMPHS 8 % (21-51); MONO 2 % (1-9)
[2017-07-28 07:18] LABS: HYPOCHROM 1+
[2017-07-28] MEDS: SYNTHROID PO SCH (09:23)
[2017-07-28] MEDS: CORDARONE PO SCH (09:23)
[2017-07-28] MEDS: PRILOSEC PO SCH (09:23)
[2017-07-28] MEDS: VITAMIN D PO SCH (09:24)
--- NOTE | 2017-07-28 15:55 | PROGRESS NOTE ---
DATE: 07/28/2017 SUBJECTIVE: Today, Ms. Sharp refers to be doing okay. Still complained of some minimal pain in the right big finger. OBJECTIVE: Vital signs: Blood pressure is 128/55, pulse of 79, respirations 16, temperature is 98.3 degrees. General: Ms. Sharp is an 86-year-old, female. She is in bed. She did not seem to be in any remarkable distress. HEENT: Mucosa is pink and moist. Anicteric. Acyanotic. Neck: Supple. No JVD. Chest: Good air entry bilateral. A few bibasilar crepitations. Cardiovascular: Regular rate and rhythm. There is no murmurs, no rubs, no gallops. Abdomen: Soft, nontender. Bowel sounds are present. There is no hepatosplenomegaly. Extremities: No pedal edema. Central nervous system: The patient is awake, alert and oriented x4. There is no focal neurological deficit. The patient follows commands. Skin: The patient has a few ecchymotic lesions on the forehead, consistent of the fall. Also has tenderness in exploration of the big right finger which is tender, with some bruising over the overlying skin. LABORATORY DATA: WBC is 11.01, hemoglobin is 8.9, platelet count is 231,000, neutrophil is about 90%. Chemistry is reviewed. Sodium is 141, potassium is 3.5, chloride is 100, bicarb is 28, BUN is 27, creatinine is 1.0. IMAGING: X-ray of the hand, which was done yesterday, shows fracture to the first metacarpal. ASSESSMENT: 1. Frequent falls at home, likely secondary to generalized weakness and deconditioning. The patient is being evaluated for rehab, with intent of long-term placement. The patient has had multiple falls at home. I understand has a son who lives with her, but works, so he is not able to monitor her all the time, so it is kind of a risk for her to be alone at home. 2. Vitamin D deficiency. We will continue to replace this. 3. Acute kidney injury, secondary to dehydration, improved. 4. Leukocytosis on presentation, which is reactive. It is improved. 5. Constipation. Will continue to address this with bowel regimen. The patient has not had any bowel movement since July 2. Will start her on some MiraLAX. 6. Right first metacarpal fracture with significant angulation. Will consult Orthopedics to evaluate the patient. DISPOSITION: The patient is clinically stable. I think she is going to be needing some physical rehabilitation; however, I understand she does not have any more rehab days. alley worker is still working on options of either getting her to [facility] or would have to go home with home health. cc: Inderjit Chang MD
[2017-07-28] MEDS: MIRALAX PO SCH (18:46)
[2017-07-28] MEDS: MELATONIN PO SCH (21:39)
[2017-07-29] MEDS: AFRIN NASAL SPRAY NAS SCH (03:09)
--- NOTE | 2017-07-29 04:23 | CONSULTATION ---
DATE OF CONSULTATION: 07/28/2017 CHIEF COMPLAINT: Right thumb pain. HISTORY OF PRESENT ILLNESS: Ms. Sharp, an 86-year-old female who fell several days back was admitted. She has actually been doing well and has been getting better from a lot of her pain but she developed some right thumb pain during her hospital course. X-ray was taken which showed a thumb fracture and Orthopedics was consulted. Most the pain and some is when she moves it. It is associated with just a little bit of swelling. PAST MEDICAL HISTORY: Hypertension. ALLERGIES: Codeine. HOME MEDICATIONS: Amiodarone and levothyroxine. SOCIAL HISTORY: She denies any smoking. REVIEW OF SYSTEMS: Positive for this right thumb pain. PHYSICAL EXAMINATION: General: Elderly appearing female, in no acute distress. Head and Neck: She has a laceration above the right eye. Respirations: Nonlabored breathing. Abdomen: Nondistended. Cardiovascular: Regular pulse. Right Upper Extremity: She has tenderness palpation to the thumb metacarpal. She actually has good motion though of that thumb. It looks like she does have some arthritic changes to the other joints in her hand. She has a little bit of deformity and what looks like some osteophytes as well on these other ones. She has good sensation to light touch to the thumb. No skin lacerations or lesions seen. RADIOGRAPHS: Three-view of the right hand shows a thumb metacarpal fracture with angulation. ASSESSMENT: Right thumb metacarpal fracture. PLAN: It sounds like she fell about a week or so ago, so it has been a while already with this thumb fracture. It is a little bit angulated but she is actually still able to use it pretty well. I am going to put her in a thumb spica splint and try to keep that thumb a little bit extended and try to extend that fracture just a little and help it heal in a good position. We will put that on her in the morning, as we will have to get it from the office. cc: Mario Daugherty MD
[2017-07-29 06:23] LABS: BASO% 0.2 % (0.0-0.8); EOS# 0.23 X1000 (0.0-0.7); EOS% 2.3 % (0.0-10.0); HEMATOCRIT 27.2 % (37.0-47.0); HEMOGLOBIN 9.2 g/dL (12.0-16.0); IMM GRAN# 0.07 X1000 (0.0-0.04); IMM GRAN% 0.7 % (0.0-0.5); LYMPH# 1.43 X1000 (1.2-3.4); LYMPH% 14.5 % (20.5-51.1); MANUAL DIFF NEEDED? YES; MCH 31.9 PG (27-31); MCHC 33.8 g/dL (33-37); MCV 94.4 FL (81-99); MONO# 0.79 X1000 (0.11-0.59); MPV 10.4 FL (7.4-10.4); NEUT% 74.3 % (42.2-75.2); PLT 245 X1000 (130-400); RBC 2.88 XMIL (4.2-5.4)
[2017-07-29 06:41] LABS: ALBUMIN 3.4 g/dL (3.5-5.0); CALCIUM 9.3 mg/dL (8.8-10.2); POTASSIUM 3.7 mmol/L (3.5-5.1); TOTAL BILIRUBIN 0.3 mg/dL (0.20-1.00); TOTAL PROTEIN 6.4 g/dL (6.3-8.3)
[2017-07-29 08:48] LABS: LYMPHS 12 % (21-51); MONO 2 % (1-9)
[2017-07-29] MEDS: PRILOSEC PO SCH (10:13)
[2017-07-29] MEDS: VITAMIN D PO SCH (10:14)
[2017-07-29] MEDS: MIRALAX PO SCH (10:14)
[2017-07-29] MEDS: SYNTHROID PO SCH (10:15)
--- NOTE | 2017-07-29 11:54 | PROGRESS NOTE ---
DATE: 07/29/2017 SUBJECTIVE: Today Ms. Sharp refers to be doing a lot better. She denies any complaints. Ms. Sharp has also been participating in PT. She was actually evaluated yesterday was able to do 80 feet with full weightbearing and minimal assistance. Today she refers to be doing a lot better. OBJECTIVE: Vital signs: Blood pressure is 140/60, pulse of 70, respirations 16 , temperature 98.0 degrees. General: Ms. Sharp is an 86-year-old female. She is in bed. She is not in any distress. HEENT: Mucosa is pink and moist. Anicteric. Acyanotic. Neck: Supple. Chest: Clear. Cardiovascular: Regular rate and rhythm. No murmurs. No rubs. Abdomen: Soft. There is no hepatosplenomegaly. No tenderness. Extremities: No pedal edema. Distal pulses are present. COMMERCIAL CARPENTER: Patient is awake and alert. No focal neurological deficit. Skin: There are minimal ecchymotic lesions on the forehead and around the right eye. The patient also has tenderness to the right finger. LABORATORY DATA: WBC is 9.89, hemoglobin is 9.2, platelet count is 245,000. Chemistries reviewed, completely normal. ASSESSMENT: 1. Frequent falls at home, likely secondary to generalized weakness and deconditioning. According to the patient she has a walker, she has a wheelchair, and she has a cane all at home. She also has a son who normally is there with her. However, when the son is working, the [id number] is there. She also referred that she can actually go home to her daughter's house and somebody will be there all the time with her. We will therefore discharge her with home health since she seems to have very good family support. 2. Vitamin D deficiency. We will continue to replace. 3. Acute dehydration on presentation, improved. 4. Leukocytosis on presentation. Likely reactive. Resolved. 5. Constipation. Patient will continue using bowel prep. 6. Right first metacarpal fracture with some angulation. Patient has been evaluated by orthopedics and they plan to put a splint and follow her up on an outpatient basis. 7. Nondisplaced anterior and posterior wall fractures of the right maxillary sinus. ENT was consulted on admission and Dr. Delmar Magallanes is willing to follow up with the patient on an outpatient basis. Has recommended doxycycline. Patient will therefore follow up with him in his office. I think today Ms. Sharp is stable. We were planning to send her to a rehab; however, I understand she is out of her rehab days. Today she refers that she has a lot of family support. We will therefore be able to send her home with home health and she will follow up with orthopedics and with ENT. cc: Inderjit Chang MD MTDD
--- NOTE | 2017-07-29 15:07 | PROGRESS NOTE ---
DATE: 07/29/2017 SUBJECTIVE DATA: The patient is lying comfortably in bed at the present. She is not having any pain. She states she may be getting discharged today. OBJECTIVE DATA: Right upper extremity exam: She does have tenderness to palpation over the thumb metacarpal. She has pretty good range of motion there. She has a little bit of deformity as well. She has good sensation to light touch. No skin lacerations or ulcerations seen. She has a 2+ radial pulse. We are going to get her into thumb-spica brace. ASSESSMENT: Right thumb metacarpal fracture. PLAN: We are going to place her in a thumb spica brace. We are going to have her follow up with Dr. Daugherty in clinic in 1 week. We will get new x-rays at that time. Dictated by DARRIUS Lanier for Mario Daugherty MD cc: DARRIUS Lanier MD
[2017-07-29 20:19] VITALS: BP 152/81
[2017-07-29] MEDS ORDERED: DOXYCYCLINE PO SCH (21:00)
--- NOTE | 2017-07-30 14:20 | DISCHARGE SUMMARY ---
ADMISSION DATE: 07/22/2017 DISCHARGE DATE: 07/29/2017 CONSULTATIONS: Dr. Daugherty with Orthopedics. PERTINENT PROCEDURES: 1. Head/cervical spine CT. 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 No acute hemorrhage visible. 2. New subtle compression fracture at T2. 3. Facial bone CT showed some nondisplaced anterior and posterior wall fractures of the right maxillary sinus. Significant hyperdense fluid in the right maxillary sinus. Right periorbital superficial soft tissue swelling. 4. Chest x-ray. Stable. 5. Hip/pelvis x-ray showed no acute disease. 6. Right hand x-ray showed fracture to the 1st metacarpal. DISCHARGE DIAGNOSES: 1. Frequent falls at home secondary to generalized weakness and deconditioning. She is being discharged home with her daughter with home health. She has a walker and a wheelchair as well as a cane. 2. Vitamin D deficiency. Continue supplementation. 3. Acute dehydration on presentation. Resolved. 4. Leukocytosis on presentation. Likely reactive. Resolved. 5. Constipation. Continue using bowel prep. 6. Right 1st metatarsal fracture with some angulation. The patient has been evaluated by Dr. Daugherty. They will put on a splint and follow up on an outpatient basis. 7. Nondisplaced anterior and posterior wall fractures of the right maxillary sinus and he was consulted on admission, Dr. Magallanes. Will follow up with the patient on an outpatient basis. He recommended doxycycline. HOSPITAL COURSE: Ms. Sharp is an 86-year-old, who carries a past medical history of bradycardia, GERD, arthritis, frequent falls, CVA, chronic subdural hematomas. She lives at home alone. She presented to the ED after a fall. She had a complaint of right facial pain. She had a right eyebrow laceration, left hip pain. She had sutures to her right eyebrow performed in the ED. The patient remembered falling but she does not remember how she fell. She fell a couple days ago as well. She had ecchymosis around both eyes and an abrasion over her right upper lip as well. She did not remember much of her past medical history. There was no family there at the time of her original examination. Her urine drug screen was positive for opiates and benzodiazepines. She had a white count of 22, potassium 4.5, sodium of 140, a BUN of 18, creatinine of 1.3, blood glucose of 99. Urine culture was negative. Chest x- ray was stable. She had a facial bone CT that showed subtle nondisplaced anterior posterior wall fractures of the right maxillary sinus, significant hyperdense blood in the right maxillary sinus , right periorbital superficial soft tissue swelling. Head and cervical spine CT showed new bilateral low- density subdural effusions most likely chronic and subdural hematomas. Most likely a chronic subdural hematomas, no acute hemorrhage visible. New subtle compression fracture at T2. Hip and pelvic ask x-ray showed no acute disease. For the facial trauma and right maxillary fracture Dr. Magallanes recommended conservative treatment and placed her on doxycycline, and follow up with him in his office on an outpatient basis. The patient does have a history of frequent falls at home secondary to generalized weakness and deconditioning. She does live with a son at home. However he does work. She states that she does have a daughter that she can live with. We did try for rehab however she is out of rehab days. She has been participating in physical therapy. She has a walker, a wheelchair and a cane at home so she will be discharged to her daughter's home today with home health and followup. She was also complaining of some right thumb pain for which we did an x-ray that showed a thumb metacarpal fracture with angulation. Dr. Daugherty put her in a thumb splint to try to extend the fracture and help it heal in good position and follow back up with him in the office. She is appropriate for discharge home today with her daughter and home health. VITAL SIGNS: Temperature is 98.6 degrees, heart rate 68, respirations 18, blood pressure 140/60, O2 is 100% on room air. DISCHARGE DIET: Mechanical soft with Ensures. DISCHARGE MEDICATIONS: 1. Amiodarone 200 mg p.o. q.a.m. 2. Vitamin D3 2000 units p.o. daily. 3. Doxycycline 100 mg p.o. b.i.d. 4. Synthroid 50 mcg p.o. q.a.m. 5. Melatonin 3 mg p.o. at bedtime. 6. Prilosec 40 mg p.o. daily. 7. Ultram 50 mg p.o. q.6 hours p.r.n. FOLLOWUP: Ms. Sharp is being discharged home with her daughter with [facility]. She has completed all antibiotics as directed. She is to wear her splint on her right hand, follow up with Dr. Daugherty and Dr. Magallanes. She can return to the ED for any worsening of symptoms. ADDENDUM: Ms. Sharp went home by ambulance per family request Dictated by DARRIUS Sweeney for Inderjit Chang MD cc: Inderjit Chang MD Time spent for discharge is 36 minutes [facility]
== END 2017-07-29 21:36 | disposition home health service (06) ==
LOC: ED 09:11 → SUATTDRO 16:37 → 4N 16:37
PROVIDERS: ATTEND Internal Medicine